=== PATIENT | female | born 1965 ===

== ENCOUNTER 2024-10-03 19:22 | Outpatient (REF) | payer OTHER, SELFPAY ==
[2024-10-03 19:08] LABS: Abs Immature Grans 0.02 10^3/uL (0.0-0.06); Absolute Basophil Count 0.09 10^3/uL (0.0-0.2); Absolute Eosinophil Count 0.09 10^3/uL (0.0-0.7); Absolute Lymphocyte Count 2.05 10^3/uL (1.2-3.4); Absolute Neutrophil Count 3.02 10^3/uL (1.2-6.7); Basophils % 1.6 %; Eosinophils % 1.6 %; HCT 46.7 % (36.0-46.0); HGB 15.3 g/dL (11.2-15.7); Immature Grans % 0.3 %; Lymphocytes % 35.5 %; MCH 31.2 pg (27.0-33.0); MCHC 32.8 % (32.0-36.0); MCV 95 fL (80-95); MPV 9.5 fL (8.0-11.0); Monocytes % 8.7 %; Neutrophils % 52.3 %; Platelet Count 255 10^3/uL (130-400); RBC 4.91 10^6/uL (3.93-5.22); RDW 13.1 % (11.7-14.6); RDW-SD 45.8 fL; WBC 5.77 10^3/uL (4.4-10.8)
[2024-10-03 19:26] LABS: Iron 60 ug/dL (50-170); Total Iron Binding Capacity 483 ug/dL (250-450); Transferrin Sat 12 % (15-50)
[2024-10-03 19:32] LABS: Hemoglobin A1C 5.8 % (<5.7)
[2024-10-03 20:00] LABS: ALT 23 U/L (14-59); AST 20 U/L (15-37); Albumin 3.9 g/dL (3.4-5.0); Alkaline Phosphatase 93 U/L (46-116); Anion Gap 1.4 mmol/L (3-11); BUN 15 mg/dL (7-18); Bilirubin, Total 0.4 mg/dL (0.2-1.0); CO2 33.6 mmol/L (21.0-32.0); CREATININE 0.6 mg/dL (0.55-1.02); Calcium 9.2 mg/dL (8.5-10.1); Calculated LDL 158 mg/dL (<100); Chloride 104 mmol/L (98-107); Cholesterol 244 mg/dL (<200); Estimated GFR 103.33 (mL/min/1.73m2); Ferritin 13 ng/mL (8-252); Folate 9.1 ng/mL (8.6-20.0); Glucose 103 mg/dL (74-106); HDL Cholesterol 66 mg/dL (>or=50); Magnesium 2.1 mg/dL (1.8-2.4); Potassium 5.1 mmol/L (3.5-5.1); Sodium 139 mmol/L (136-145); Total Protein 7.6 g/dL (6.4-8.2); Triglyceride 102 mg/dL (<150); Vitamin B12 430 pg/mL (193-986); Vitamin D 25 Total 12 ng/mL (30-100)
== END 2024-10-03 19:23 | disposition home or self-care (01) ==
LOC: NCHCN 19:22
PROVIDERS: Visit Provider Nurse Practitioner Family
DX: Z86.39 Personal history of other endocrine, nutritional and metabolic disease (principal); Z90.3 Acquired absence of stomach [part of]
CPT/HCPCS: 80053; 80061; 82306; 82607; 82728; 82746; 83036; 83540; 83550; 83735; 84443; 85025